=== PATIENT | female | born 1950 | race American Indian/Alaskan Native ===

== ENCOUNTER 2023-05-03 15:34 | Emergency (ER) | payer MEDICARE, OTHER ==
[2023-05-03] MEDS ORDERED: Sodium Chloride 0.9% 10 ML Syringe FLUSH PRN (16:16)
[2023-05-03] MEDS ORDERED: Ondansetron 4 MG/2 ML SDV IV ONE (16:17)
[2023-05-03 16:34] LABS: BASOPHILS PERCENT AUTO 0.2 % (0.0-1.0); EOSINOPHILS PERCENT AUTO 4.9 % (1.0-3.0); HEMATOCRIT 42.5 % (37.0-47.0); HEMOGLOBIN 14.4 g/dL (12.0-16.0); LYMPHOCYTES PERCENT AUTO 13.9 % (20.5-50.1); MEAN CORPUSCULAR HEMOGLOBIN 28.1 pg (27.0-34.0); MEAN CORPUSCULAR HGB CONC 33.9 g/dL (33.0-35.0); MEAN CORPUSCULAR VOLUME 82.8 fL (80-100); MONOCYTES PERCENT AUTO 6.3 % (2-8); NEUTROPHILS PERCENT AUTO 74.7 % (42.2-75.2); PLATELET COUNT,PLT 268 10^3/uL (150-450); RED BLOOD CELL COUNT 5.13 10^6/uL (4.2-5.4); WHITE BLOOD CELL COUNT,WBC 10.2 10^3/uL (5.0-10.0)
[2023-05-03 16:52] LABS: A/G RATIO 1.1; ALANINE AMINOTRANSFERASE,ALT 35 U/L (14-59); ALBUMIN 4.2 g/dL (3.4-5.0); ALKALINE PHOSPHATASE 70 U/L (46-116); ANION GAP 13.5 mEq/L (7-13); ASPARTATE AMNIOTRANSFERASE,AST 17 U/L (15-37); BILIRUBIN TOTAL 0.4 mg/dL (0.2-1.0); BLOOD UREA NITROGEN,BUN 23 mg/dL (7-18); BUN/CREATININE RATIO 23.2 (No establ ref range); C-REACTIVE PROTEIN 0.2 mg/dL (0.0-0.9); CALCIUM 9.6 mg/dL (8.5-10.1); CARBON DIOXIDE,CO2 25 mmol/L (21-32); CHLORIDE,CL 101 mmol/L (98-107); CREATININE 0.99 mg/dL (0.55-1.02); GLUCOSE RANDOM 184 mg/dL (70-99); LACTATE DEHYDROGENASE,LDH 154 U/L (81-234); POTASSIUM,K 3.5 mmol/L (3.5-5.1); PROTEIN TOTAL,TP 7.9 g/dL (6.4-8.2); SODIUM,NA 136 mmol/L (136-145)
[2023-05-03 16:55] LABS: LACTIC ACID 1.1 mmol/L (0.4-2.0)
[2023-05-03 16:57] LABS: ESTIMATED GFR 59 mL/min (>=60)
[2023-05-03] MEDS ORDERED: Iopamidol 755 Mg/ML 100 ML Bottle IVPUSH ONE (17:01)
[2023-05-03] MEDS ORDERED: Sodium Chloride 0.9% 1,000 ML IV ONE (17:01)
[2023-05-03 17:31] LABS: INR 0.9 (0.9-1.2); PROTHROMBIN TIME 9.3 SEC (9.0-12.0); PTT,PARTIAL THROMBOPLSTIN TIME 25.7 SEC (22.0-34.0)
[2023-05-03] MEDS ORDERED: Doxycycline Monohydrate 100 MG Cap PO ONE (18:17)
[2023-05-03 18:51] VITALS: BP 146/78; PULSE 84
== END 2023-05-03 18:48 | disposition home or self-care (01) ==
LOC: DL.ED 15:34
DX: R04.2 Hemoptysis (principal); Z88.5 Allergy status to narcotic agent; Z88.8 Allergy status to other drugs, medicaments and biological substances; Z79.82 Long term (current) use of aspirin
CPT/HCPCS: 36415; 71275; 80053; 83605; 83615; 84145; 85025; 85610; 85730; 86140; 87070; 87205; 96361; 96374; 99284; 99284-25; A9270-GY; J2405; J3490; J7030; Q9967

== ENCOUNTER 2025-09-10 08:07 | Day surgery (SDC) | payer MEDICARE, OTHER ==
[2025-09-10] MEDS ORDERED: Sodium Chloride 0.9% 10 ML Syringe IV ONE (08:08)
[2025-09-10] MEDS ORDERED: Midazolam 1 MG/ML 2 ML SDV IV ONE (08:08)
[2025-09-10] MEDS ORDERED: Dexamethasone 4 MG/ML SDV IV ONE (08:08)
[2025-09-10] MEDS ORDERED: Ondansetron 4 MG/2 ML SDV IVPUSH PRN (08:30)
[2025-09-10] MEDS: Timolol Maleate 0.5% Ophth Soln 5 ML Bottle EYELF ONE (08:45)
[2025-09-10] MEDS: Moxifloxacin 0.5% Ophth Soln 3 ML Bottle EYELF ONE ×2 (09:04→10:29)
[2025-09-10] MEDS: Povidone-Iodine 5% Sterile Ophth Soln 30 ML Bottle EYELF ONE ×2 (09:04→10:23)
[2025-09-10] MEDS: Phenylephrine 10% Ophth Soln 5 ML Bot EYELF ONE (09:06)
[2025-09-10] MEDS: Cataract Ophth Solution EYELF ONE (09:06)
[2025-09-10] MEDS ORDERED: Dexamethasone 4 MG/ML SDV ONE (10:12)
[2025-09-10] MEDS: Apraclonidine 0.5% Ophth Soln 5 ML Bot EYELF ONE (10:28)
[2025-09-10 11:09] VITALS: BP 144/79; PULSE 64
== END 2025-09-10 11:18 | disposition home or self-care (01) ==
LOC: DL.SDS 08:07
PROVIDERS: ATTEND Ophthalmology
DX: E11.36 Type 2 diabetes mellitus with diabetic cataract (principal); H25.813 Combined forms of age-related cataract, bilateral; I10 Essential (primary) hypertension; Z79.82 Long term (current) use of aspirin; Z79.84 Long term (current) use of oral hypoglycemic drugs; Z79.899 Other long term (current) drug therapy
CPT/HCPCS: 66984; A9270; J1100; J2003; J2250; J3373; 00142; 99100; J3490; V2632

== ENCOUNTER 2025-09-24 08:14 | Day surgery (SDC) | payer MEDICARE, OTHER ==
[2025-09-24] MEDS: Moxifloxacin 0.5% Ophth Soln 3 ML Bottle EYERT ONE (08:03)
[2025-09-24] MEDS ORDERED: Sodium Chloride 0.9% 10 ML Syringe IV ONE (08:15)
[2025-09-24] MEDS ORDERED: Dexamethasone 4 MG/ML SDV IV ONE (08:15)
[2025-09-24] MEDS ORDERED: Midazolam 1 MG/ML 2 ML SDV IV ONE (08:15)
[2025-09-24] MEDS ORDERED: Ondansetron 4 MG/2 ML SDV IVPUSH PRN (08:30)
[2025-09-24] MEDS: Phenylephrine 10% Ophth Soln 5 ML Bot EYERT ONE (08:45)
[2025-09-24] MEDS: Povidone-Iodine 5% Sterile Ophth Soln 30 ML Bottle EYERT ONE ×2 (08:45→10:51)
[2025-09-24] MEDS: Timolol Maleate 0.5% Ophth Soln 5 ML Bottle EYERT ONE (08:46)
[2025-09-24] MEDS: Cataract Ophth Solution EYERT ONE (08:48)
[2025-09-24] MEDS: Diclofenac Sodium 0.1% Ophth Soln 5 ML Bottle EYERT ONE (10:51)
[2025-09-24] MEDS: Apraclonidine 0.5% Ophth Soln 5 ML Bot EYERT ONE (10:51)
[2025-09-24] MEDS: Dexamethasone/Neomycin/Polymyxin B Ophth Oint 3.5 GM Tube EYERT ONE (10:52)
[2025-09-24 11:39] VITALS: BP 142/74; PULSE 76
== END 2025-09-24 11:38 | disposition home or self-care (01) ==
LOC: DL.SDS 08:14
PROVIDERS: ATTEND Ophthalmology
DX: E11.36 Type 2 diabetes mellitus with diabetic cataract (principal); H25.811 Combined forms of age-related cataract, right eye; I10 Essential (primary) hypertension; Z79.84 Long term (current) use of oral hypoglycemic drugs; Z79.82 Long term (current) use of aspirin; Z79.899 Other long term (current) drug therapy
CPT/HCPCS: A9270-GY; J1100; J2003; J2250; J3373; J3490; V2632